=== PATIENT | male | born 1980 | race Caucasian/White ===

== ENCOUNTER 2024-05-31 13:05 | Emergency (ER) | payer OTHER, SELFPAY ==
[2024-05-31 13:09] VITALS: BP 159/94; PULSE 61; RESP 16; TEMP 36.7; O2SAT 96; BMI 31.0
--- NOTE | 2024-05-31 13:39 | XR_ITS ---
WS: [id number] XR chest 1V portable [id number] REASON FOR EXAM: lightheaded FINDINGS: Moderate tortuosity and ectasia of the thoracic aorta. Heart size at the upper limits of normal. Calcified granulomas disease bilaterally. No acute/subacute pulmonary parenchymal or pleural abnormality. Mild thoracic scoliosis. XR/XR chest 1V portable [id number] IMPRESSION: No acute chest abnormality.
--- NOTE | 2024-05-31 13:39 | ECG_ITS ---
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 Measurements Intervals [place] Rate: 62 P: 51 CT: 150 QRS: 66 QRSD: 104 T: 8 QT: 373 QTc: 381 Interpretive Statements SINUS RHYTHM No previous ECG available for comparison Electronically Signed On 05-31-2024 15:56:32 CDT by Otis Gentile M.D. [id number]
--- NOTE | 2024-05-31 13:59 | ED_ITS ---
HPI - Arrhythmia/Palpitations 2 General: Chief Complaint: Arrhythmia/Palpitations Stated Complaint: heart fluxuations Time Seen by Provider: 05/31/24 13:51 Source: patient Mode of arrival: ambulatory Limitations: no limitations History of Present Illness: 43-year-old male states that he is adelina moreno roughly 2 hours ago and felt like his heart was racing. He states he had checked on his iWatch and his heart rate was fluctuating between 60 and 120 states he had a period where he felt like he is going to pass out and was having some lightheadedness but did not pass out. Denies any chest pain or shortness of breath. Patient has no medical issues. He states he did drink a couple coffee and two 8 ounce energy drinks. Associated symptoms: Reports pre-syncope; Deny nausea or vomiting Review of Systems 2 Const: Denies: fever(s), chills, body aches or change in appetite ENMT: Denies: throat pain or dental pain Card: Reports: palpitations, lightheadedness and pre-syncope; Denies: chest pain Resp: Denies: dyspnea GI: Denies: abdominal pain, nausea, vomiting or diarrhea Musc: Denies: neck pain or back pain Skin/Breast: Denies: rash Neuro: Denies: headache(s) Physical Exam 2 Const: COMMON NORMALS: no acute distress, patient oriented x3 and healthy appearing HENMT: COMMON NORMALS: normocephalic and atraumatic HEAD & SCALP: n ormocephalic and atraumatic Eye: COMMON NORMALS: conjunctivae normal CONJUNCTIVA: Yes conjunctivae normal Neck/C-Spine: COMMON NORMALS: full ROM and supple Chest: COMMONS NORMALS: normal inspection of the chest and normal palpation of entire chest wall Resp: COMMON NORMALS: normal respiratory effort, No retractions, No use of accessory muscles and clear to auscultation bilaterally AUSCULTATION: clear to auscultation bilaterally Cardio: COMMON NORMALS: regular rate, regular rhythm and No murmurs present (Cardio) RATE: regular rate RHYTHM: regular rhythm Extremity: COMMON NORMALS: normal to inspection and full ROM Neuro: COMMON NORMALS: patient oriented x3, moves all extremities and no focal motor deficits Psych: COMMON NORMALS: mental status grossly normal, Normal thought process present and cooperative THOUGHT PROCESS: Normal thought process present Skin: COMMON NORMALS: no rashes or lesions noted and no wounds GENERAL SKIN EXAM: no rashes or lesions noted Course 2 Vital Signs: Vital signs: Vital Signs Temperature 98.1 F 05/31/24 13:09 Pulse Rate 61 05/31/24 13:09 Respiratory Rate 16 05/31/24 13:09 Blood Pressure 159/94 05/31/24 13:09 Pulse Oximetry 96 05/31/24 13:09 Oxygen Delivery Me thod Room Air 05/31/24 13:09 MDM - Arrhythmia/Palpitations Medical Decision Making Patient presents with palpitations he has been well-appearing here his heart rates been in the 60s here blood pressure has been slightly elevated he feels improved EKG blood work here is all normal he has no signs of acute coronary syndrome. I informed him he needs to monitor his blood pressure at home morning noon and night follow-up with PCP in 7 to 10 days he is return if worsening he understands agrees to plan. Medical Records I reviewed the patient's medical records. Lab Data I reviewed the patient's lab results. 05/31/24 13:54 05/31/24 13:54 Radiology Impressions Chest X-Ray 05/31/24 13:39 IMPRESSION: No acute chest abnormality. Laboratory Results WBC 4.87 10^3/uL (3.29-11.43) 05/31/24 13:54 RBC 4.93 10^6/uL (3.85-5.65) 05/31/24 13:54 Hgb 15.50 g/dL (11.27-16.99) 05/31/24 13:54 Hct 45.9 % (37-53) 05/31/24 13:54 MCV 93.1 fl (82-101) 05/31/24 13:54 MCH 31.4 pg (27-33) 05/31/24 13:54 MCHC 33.8 g/dL (30-55) 05/31/24 13:54 RDW 12.9 % (12.1-15.1) 05/31/24 13:54 Plt Count 201 10^3/cmm (157-399) 05/31/24 13:54 MPV 8.7 fL (7.4-10.4) 05/31/24 13:54 Neut % (Auto) 68.6 % 05/31/24 13:54 Lymph % (Auto) 19.7 % 05/31/24 13:54 [place] % (Auto) 9.9 % 05/31/24 13:54 Eos % (Auto) 1.0 % 05/31/24 13:54 Baso % (Auto) 0.6 % 05/31/24 13:54 Neut # (Auto) 3.34 10^3/uL (1.8-7.7) 05/31/24 13:54 Lymph # (Auto) 1.0 10^3/uL (0.8-4.8) 05/31/24 13:54 [place] # (Auto) 0.5 10^3/uL (0.2-0.9) 05/31/24 13:54 Eos # (Auto) 0.1 10^3/uL (0.0-0.8) 05/31/24 13:54 Baso # (Auto) 0.0 10^3/uL (0.0-0.1) 05/31/24 13:54 Nucleated RBC % (auto) 0 % 05/31/24 13:54 Nucleated RBCs # 0.0 /100WBC 05/31/24 13:54 Sodium 138 mmol/L (136-145) 05/31/24 13:54 Potassium 4.6 mmol/L (3.5-5.1) 05/31/24 13:54 Chloride 103 mmol/L (98-107) 05/31/24 13:54 Carbon Dioxide 25 mmol/L (22-29) 05/31/24 13:54 Anion Gap 14.6 (5-19) 05/31/24 13:54 BUN 11 mg/dL (6-20) 05/31/24 13:54 Creatinine 1.0 mg/dL (0.7-1.2) 05/31/24 13:54 GFR Calculation 81.2 mL/min (90-130) L 05/31/24 13:54 Glucose 96 mg/dL (65-115) 05/31/24 13:54 Calculated Osmolality 285 mOsm/kg (285-295) 05/31/24 13:54 Calcium 9.3 mg/dL (8.5-10.5) 05/31/24 13:54 Total Bilirubin 0.6 mg/dL (0.15-1.2) 05/31/24 13:54 AST 23 U/L (0-40) 05/31/24 13:54 ALT 19 U/L (0-41) 05/31/24 13:54 Alkaline Phosphatase 80 U/L (40-130) 05/31/24 13:54 Troponin T Baseline 8 ng/L (0-15) 05/31/24 13:54 Total Protein 6.7 g/dL (6.6-8.7) 05/31/24 13:54 Albumin 4.6 g/dL (3.5-5.2) 05/31/24 13:54 Globulin 2.1 g/dL (1.3-4.6) 05/31/24 13:54 All radiology interpretation(s) finalized by discharge EKG Data EKG 1: I personally reviewed and interpreted this EKG as follows: EKG interpretation date: 05/31/24 EKG interpretation time: 13:12 Interpretation: nsr hr [address] or t wave abnormalities qrs 104 qtc 379 Other EKG comments: Chest X-Ray 05/31/24 13:39 IMPRESSION: No acute chest abnormality. Discharge Plan Discharge Patient Disposition: Home Clinical Impression: Palpitations Condition: Stable Discharge Orders: Discharge ED (Routine); Ordered 05/31/24 Ordered By: Mecca Maldonado Discharge Diet: Advance as tolerated Discharge Activity: Resume usual activity Patient Instructions: Heart Palpitations (ED) Activity Restrictions/Additional Instructions: Monitor your blood pressure keep a log morning noon and night follow-up with your PCP in 7 to 10 days return if worsening Coding Level of Care Code ED Senior Office Assistant for Danyelle Cerda
[2024-05-31 14:03] LABS: Basophils % 0.6 %; Eosinophils # 0.1 10^3/uL (0.0-0.8); Hematocrit 45.9 % (37-53); Lymphocytes % 19.7 %; Mean Corpuscular HGB Conc 33.8 g/dL (30-55); Mean Corpuscular Hemoglobin 31.4 pg (27-33); Mean Corpuscular Volume 93.1 fl (82-101); Mean Platelet Volume 8.7 fL (7.4-10.4); Monocytes # 0.5 10^3/uL (0.2-0.9); Monocytes % 9.9 %; Neutrophils # 3.34 10^3/uL (1.8-7.7); Neutrophils % 68.6 %; Nucleated Red Blood Cells % 0 %; Platelet Count 201 10^3/cmm (157-399); Red Blood Count 4.93 10^6/uL (3.85-5.65); Red Cell Distribution Width 12.9 % (12.1-15.1); White Blood Count 4.87 10^3/uL (3.29-11.43)
[2024-05-31 14:14] VITALS: BP 157/93; PULSE 58; O2SAT 95
[2024-05-31] MEDS: sodium chloride 0.9% 1,000 ML 999 ML IV (14:20)
[2024-05-31 14:26] LABS: Troponin(5th) Baseline 8 ng/L (0-15)
[2024-05-31 14:28] LABS: Alanine Aminotransferase 19 U/L (0-41); Albumin Level 4.6 g/dL (3.5-5.2); Alkaline Phosphatase 80 U/L (40-130); Anion Gap 14.6 (5-19); Aspartate Amino Transferase 23 U/L (0-40); Blood Urea Nitrogen 11 mg/dL (6-20); Calcium 9.3 mg/dL (8.5-10.5); Carbon Dioxide 25 mmol/L (22-29); Chloride 103 mmol/L (98-107); Creatinine Clr Calc Pharmacy 107.3621; Globulin 2.1 g/dL (1.3-4.6); Glomerular Filtration Rate 81.2 mL/min (90-130); Glucose 96 mg/dL (65-115); Osmolality Calculated 285 mOsm/kg (285-295); Potassium 4.6 mmol/L (3.5-5.1); Sodium 138 mmol/L (136-145); Total Bilirubin 0.6 mg/dL (0.15-1.2); Total Protein 6.7 g/dL (6.6-8.7)
[2024-05-31 15:28] VITALS: BP 146/94; PULSE 62; O2SAT 98
--- NOTE | 2024-05-31 15:39 | ECG_ITS ---
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 Measurements Intervals [place] Rate: 74 P: 0 NC: 0 QRS: -11 QRSD: 91 T: 86 QT: 310 QTc: 345 Interpretive Statements ATRIAL FIBRILLATION NONSPECIFIC ST & T-WAVE ABNORMALITY Compared to ECG 05/31/2024 13:12:06 T-wave abnormality now present Sinus rhythm no longer present Electronically Signed On 05-31-2024 15:57:50 CDT by Otis Gentile M.D. [id number]
== END 2024-05-31 15:37 | disposition home or self-care (01) ==
PROVIDERS: Emergency Provider Emergency Medicine
DX: R00.2 Palpitations (principal)
CPT/HCPCS: 36415; 71045; 80053; 84484; 85025; 93005; 99285; J7030